=== PATIENT | female | born 1960 | race Two or more races ===

== ENCOUNTER 2018-01-16 12:24 | Outpatient (CLI) | payer OTHER ==
[~2018-01-16 12:24] MED LIST: AYR SALINE NASA22 ML NS; CIPRO500 MG PO; FLONASE16 G1 NS; ZYRTEC10 MG PO
== END 2018-01-16 12:45 | disposition home or self-care (01) ==
LOC: RAD 501 12:24
DX: K64.2 Third degree hemorrhoids (principal); K64.4 Residual hemorrhoidal skin tags; K92.2 Gastrointestinal hemorrhage, unspecified